=== PATIENT | female | born 1950 | race Two or more races ===

== ENCOUNTER 2021-01-21 09:48 | Outpatient (CLI) | payer OTHER | END 2021-01-21 09:54 | disposition home or self-care (01) | LOC: SONOGRAMA 09:48 | PROVIDERS: ATTEND Pathology Anatomic Pathology & Clinical Pathology | DX: R07.89 Other chest pain (principal); C82.89 Other types of follicular lymphoma, extranodal and solid organ sites | CPT/HCPCS: 71260; Q9965 ==